=== PATIENT | female | born 1960 | race Caucasian/White ===

== ENCOUNTER 2024-10-25 00:27 | Observation (INO) | payer SELFPAY ==
[2024-10-25] VITALS (37 sets, daily range): BP systolic 80–139; BP diastolic 45–105; PULSE 70–105; RESP 10–22; TEMP 36.1–37.2; O2SAT 93–100
--- NOTE | 2024-10-25 00:46 | ED.FEMALEGU ---
HPI - Female Genitourinary General Chief complaint: Vaginal Bleeding <Darell Huynh PA-C - Last Filed: 10/25/24 01:35> Stated complaint: VAGINAL BLEEDING DURING INTERCOURSE <Darell Huynh PA-C - Last Filed: 10/25/24 01:35> Source: patient <Darell Margie Huynh PA-C - Last Filed: 10/25/24 01:35> Mode of arrival: EMS <Darell Huynh PA-C - Last Filed: 10/25/24 01:35> Limitations: no limitations <Darell Huynh PA-C - Last Filed: 10/25/24 01:35> History of Present Illness HPI Narrative: This is a 63-year-old female who presents to the ED via EMS for chief complaint of heavy vaginal bleeding that started tonight during sexual intercourse. Patient states that she is having regular vaginal intercourse with her partner. Denies use of twins are other objects. Denies assault. Endorses surgical history of total hysterectomy over 30 years ago. States that she takes sertraline for depression but no other medications. No blood thinners. Endorses lightheadedness. During the interview, patient did have a vagal episode but quickly regained consciousness. <Darell Huynh PA-C - Last Filed: 10/25/24 01:35> Related Data Home medications: Home Medications ?Medication ?Instructions ?Recorded ?Confirmed ?Last Taken ?Type omega-3 acid ethyl esters PO 03/16/24 10/13/24 Unknown History <Darell Huynh PA-C - Last Filed: 10/25/24 01:35> Allergies/Adverse reactions: Allergies Allergy/AdvReac Type Severity Reaction Status Date / Time morphine Allergy Severe Anaphylaxis Verified 10/25/24 06:28 <Darell Huynh PA-C - Last Filed: 10/25/24 01:35> Review of Systems Review of Systems: All systems as dictated in HPI <Darell Huynh PA-C - Last Filed: 10/25/24 01:35> [facility] Past Medical History Medical History: Medical History BMI 25.0-25.9,adult Dysuria Breast cancer screening Colon cancer screening BMI 26.0-26.9,adult Elevated BP without diagnosis of hypertension Anxiety Depression IBS (irritable bowel syndrome) Arthritis Allergies <Darell Huynh PA-C - Last Filed: 10/25/24 01:35> Family History Family History: Family History Sibling Alcoholism Depression Anxiety Thyroid disorder Other Anxiety Depression <Darell Huynh PA-C - Last Filed: 10/25/24 01:35> Social History Social History: Social History Smoking status: Never smoker Alcohol intake: current Drinks per week: 15 Alcohol use details: beer Substance use: never Substance use type: does not use <Darell Huynh PA-C - Last Filed: 10/25/24 01:35> Exam Narrative: GENERAL: Appears pale. Appears lightheaded. HEAD: Normocephalic, atraumatic. EYES: PERRLA and EOMI. ENT: Nares clear, no rhinorrhea or epistaxis. Mucous membranes moist. Oropharynx without tonsillar hypertrophy exudate or other lesions. NECK: Supple. No adenopathy or masses. CHEST: No respiratory distress. Clear to auscultation. No wheezes rales or rhonchi HEART: Regular rate and rhythm. No murmur heard. Normal peripheral pulses. ABDOMEN: Soft, nontender, nondistended, normal active bowel sounds. MSK: Normal range of motion. No edema. SKIN: Warm, dry, no rash. NEURO: Alert and oriented x4. No focal deficits. PSYCH: Normal mood and affect. : large amount of bright red blood and blood clot in the gurney and pooled blood in the vaginal vault on pelvic exam. Difficult to visualize exact location of bleeding source, however is thought to be close to the 2 o'clock position. <Darell Huynh PA-C - Last Filed: 10/25/24 01:35> Course Course Emergency Course: 03:00 - This patient was signed out to me by WING Huynh. She is admitted to OB with plan to go to OR. 07:00 - Overnight, the patient had intermittent episodes of hypotension to the 80s, that improved with IV fluids, including 2 units of blood. The patient is otherwise remained stable. <Mic Posada MD - Last Filed: 10/25/24 07:03> Vital Signs Vital signs: Vital Signs Pulse Rate 87 10/25/24 00:30 Respiratory Rate 12 10/25/24 00:30 Blood Pressure 120/105 H 10/25/24 00:30 Pulse Oximetry 96 10/25/24 00:30 Oxygen Delivery Room Air 10/25/24 00:30 Temperature 98.2 F 10/25/24 05:44 Pulse Rate 85 10/25/24 05:44 Respiratory Rate 17 10/25/24 05:44 Blood Pressure 108/63 10/25/24 05:44 Pulse Oximetry 98 10/25/24 05:44 Oxygen Delivery Room Air 10/25/24 00:53 <Darell Huynh PA-C - Last Filed: 10/25/24 01:35> Vital Signs Pulse Rate 87 10/25/24 00:30 Respiratory Rate 12 10/25/24 00:30 Blood Pressure 120/105 H 10/25/24 00:30 Pulse Oximetry 96 10/25/24 00:30 Oxygen Delivery Room Air 10/25/24 00:30 Temperature 98.2 F 10/25/24 05:44 Pulse Rate 85 10/25/24 05:44 Respiratory Rate 17 10/25/24 05:44 Blood Pressure 108/63 10/25/24 05:44 Pulse Oximetry 98 10/25/24 05:44 Oxygen Delivery Room Air 10/25/24 00:53 <Mic Posada MD - Last Filed: 10/25/24 07:03> MDM - Female Genitourinary MDM Narrative Medical decision making narrative: This is a 63-year-old female who presents to the ED for chief complaint of vaginal bleeding during intercourse this evening. Vitals on arrival are normal. On exam there is large amount of blood collecting in the gurney. Pelvic exam difficult to assess, however there appears to be a possible laceration in the 2 o'clock position of the vaginal cuff. She was packed with sterile OR towel. On arrival hemoglobin stable at 12.5. Will plan for serial H&Hs. She is pending type and screen as well as coags. Discussed the case with Dr. Rosas (OBGYN) who recommends keeping and patient NPO. He agrees with giving the patient 1 g of TXA IV. Plan for repeat examination and likely surgery in the morning. Patient will be admitted to [facility]. <Darell Huynh PA-C - Last Filed: 10/25/24 01:35> Lab Data Result diagrams: 10/25/24 00:42 10/25/24 00:42 <Darell Huynh PA-C - Last Filed: 10/25/24 01:35> Labs: Lab Results 10/25/24 10/25/24 Range/Units 00:41 00:42 WBC 4.7 (4.5-10.0) K/mm3 RBC 3.85 L (4.2-5.4) M/mm3 Hgb 12.5 (12.0-15.0) g/dL Hct 37.7 (37.0-47.0) % MCV 97.9 (80-100) fl MCH 32.5 (26-34) pg MCHC 33.2 (32-36) g/dl RDW 13.2 (11.5-14.5) % Plt Count 312 (150-375) k/mm3 MPV 8.8 (7.4-10.4) fl Immature Gran % (Auto) 0.4 (0-0.5) % Neut % (Auto) 44.6 L (45.5-73.1) % Lymph % (Auto) 45.2 H (18.3-44.2) % [place] % (Auto) 7.9 (2.6-8.5) % Eos % (Auto) 1.3 (0-4.4) % Baso % (Auto) 0.6 (0.2-1.2) % Lymph # (Auto) 2.13 (0.9-3.2) K/mm3 [place] # (Auto) 0.4 (0.1-0.6) K/mm3 Eos # (Auto) 0.1 (0-0.3) K/mm3 Baso # (Auto) 0.0 (0.0-0.1) K/mm3 Abs Immat Gran (auto) 0.02 (0.00-0.031) K/mm3 Absolute Neuts (auto) 2.1 (1.3-6.7) K/mm3 Absolute Nucleated RBC 0.000 (0.0-0.012) K/mm3 Nucleated RBC % 0.0 (0.0-0.2) % PT 13.1 (11.1-14.7) Seconds INR 1.0 APTT 22.6 (22.3-36.8) Seconds Sodium 138 (137-145) mmol/L Potassium 3.8 (3.4-5.0) mmol/L Chloride 101 (98-107) mmol/L Carbon Dioxide 23 (22-30) mmol/L Anion Gap 14 H (4-12) mmol/L BUN 6 L (7-17) mg/dL Creatinine 0.57 L (0.7-1.0) mg/dL Estim Creat Clear Calc 66 ml/min Estimated GFR > 60 (59 - ) Glucose 151 H (65-110) mg/dL Calcium 8.4 (8.4-10.2) mg/dL Total Bilirubin 0.1 L (0.2-1.3) mg/dL AST 39 H (14-36) U/L ALT 32 (6-35) U/L Alkaline Phosphatase 92 (38-126) U/L Total Protein 7.0 (6.3-8.2) g/dL Albumin 3.7 (3.5-5.1) g/dL Blood Type B Positive Antibody Screen Negative Crossmatch See Detail <Darell Huynh PA-C - Last Filed: 10/25/24 01:35> Lab Results 10/25/24 10/25/24 Range/Units 00:41 00:42 WBC 4.7 (4.5-10.0) K/mm3 RBC 3.85 L (4.2-5.4) M/mm3 Hgb 12.5 (12.0-15.0) g/dL Hct 37.7 (37.0-47.0) % MCV 97.9 (80-100) fl MCH 32.5 (26-34) pg MCHC 33.2 (32-36) g/dl RDW 13.2 (11.5-14.5) % Plt Count 312 (150-375) k/mm3 MPV 8.8 (7.4-10.4) fl Immature Gran % (Auto) 0.4 (0-0.5) % Neut % (Auto) 44.6 L (45.5-73.1) % Lymph % (Auto) 45.2 H (18.3-44.2) % [place] % (Auto) 7.9 (2.6-8.5) % Eos % (Auto) 1.3 (0-4.4) % Baso % (Auto) 0.6 (0.2-1.2) % Lymph # (Auto) 2.13 (0.9-3.2) K/mm3 [place] # (Auto) 0.4 (0.1-0.6) K/mm3 Eos # (Auto) 0.1 (0-0.3) K/mm3 Baso # (Auto) 0.0 (0.0-0.1) K/mm3 Abs Immat Gran (auto) 0.02 (0.00-0.031) K/mm3 Absolute Neuts (auto) 2.1 (1.3-6.7) K/mm3 Absolute Nucleated RBC 0.000 (0.0-0.012) K/mm3 Nucleated RBC % 0.0 (0.0-0.2) % PT 13.1 (11.1-14.7) Seconds INR 1.0 APTT 22.6 (22.3-36.8) Seconds Sodium 138 (137-145) mmol/L Potassium 3.8 (3.4-5.0) mmol/L Chloride 101 (98-107) mmol/L Carbon Dioxide 23 (22-30) mmol/L Anion Gap 14 H (4-12) mmol/L BUN 6 L (7-17) mg/dL Creatinine 0.57 L (0.7-1.0) mg/dL Estim Creat Clear Calc 66 ml/min Estimated GFR > 60 (59 - ) Glucose 151 H (65-110) mg/dL Calcium 8.4 (8.4-10.2) mg/dL Total Bilirubin 0.1 L (0.2-1.3) mg/dL AST 39 H (14-36) U/L ALT 32 (6-35) U/L Alkaline Phosphatase 92 (38-126) U/L Total Protein 7.0 (6.3-8.2) g/dL Albumin 3.7 (3.5-5.1) g/dL Blood Type B Positive Antibody Screen Negative Crossmatch See Detail <Mic Posada MD - Last Filed: 10/25/24 07:03> Critical Care Time Critical Care Time Critical Care Time: Yes <Mic Posada MD - Last Filed: 10/25/24 07:03> Total Critical Care Time: 35 <Mic Posada MD - Last Filed: 10/25/24 07:03> Discharge Plan Discharge Clinical Impression: Vaginal bleeding <Darell Huynh PA-C - Last Filed: 10/25/24 01:35> Patient Disposition: Still a Patient <Darell Huynh PA-C - Last Filed: 10/25/24 01:35> Condition: Stable <Darell Huynh PA-C - Last Filed: 10/25/24 01:35>
[2024-10-25 00:49] LABS: Basophils Percent Auto 0.6 % (0.2-1.2); Eosinophils Absolute Auto 0.1 K/mm3 (0-0.3); Eosinophils Percent Auto 1.3 % (0-4.4); Hematocrit 37.7 % (37.0-47.0); Hemoglobin 12.5 g/dL (12.0-15.0); Immature Granulocyte Absolute 0.02 K/mm3 (0.00-0.031); Immature Granulocyte Percent A 0.4 % (0-0.5); Lymphocytes Absolute Auto 2.13 K/mm3 (0.9-3.2); Lymphocytes Percent Auto 45.2 % (18.3-44.2); Mean Corpuscular HGB Conc 33.2 g/dl (32-36); Mean Corpuscular Hemoglobin 32.5 pg (26-34); Mean Corpuscular Volume 97.9 fl (80-100); Mean Platelet Volume 8.8 fl (7.4-10.4); Monocytes Absolute Auto 0.4 K/mm3 (0.1-0.6); Monocytes Percent Auto 7.9 % (2.6-8.5); Neutrophils Absolute Auto 2.1 K/mm3 (1.3-6.7); Neutrophils Percent Auto 44.6 % (45.5-73.1); Platelet Count Result 312 k/mm3 (150-375); Red Blood Count 3.85 M/mm3 (4.2-5.4); Red Cell Distribution Width 13.2 % (11.5-14.5); White Blood Count 4.7 K/mm3 (4.5-10.0)
[2024-10-25] MEDS: SODIUM CHLORIDE 0.9% IV 1,000 ML 999 ML IV CONT ×3 (00:51→01:50)
[2024-10-25 00:58] LABS: Alanine Aminotransferase 32 U/L (6-35); Albumin Level 3.7 g/dL (3.5-5.1); Alkaline Phosphatase 92 U/L (38-126); Anion Gap 14 mmol/L (4-12); Aspartate Amino Transferase 39 U/L (14-36); Bilirubin,Total 0.1 mg/dL (0.2-1.3); Blood Urea Nitrogen 6 mg/dL (7-17); Calcium 8.4 mg/dL (8.4-10.2); Carbon Dioxide 23 mmol/L (22-30); Chloride 101 mmol/L (98-107); Estimated CRCL calculation 66 ml/min; Estimated Glomerular Filt Rate > 60; Glucose 151 mg/dL (65-110); Potassium 3.8 mmol/L (3.4-5.0); Sodium 138 mmol/L (137-145)
--- OUTSIDE RECORDS SUMMARY | 2024-10-25 01:00 | XMS_ITS | Clinical Summary ---
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 Gender Identity Not on file Sexual Orientation Not on file Plan of Treatment Health Maintenance Due Date Last Done Comments Cervical Cancer Screening Pa p Smear (Age 30 to 64) Every 3 Years 1962 Colorectal Cancer Screening Colonoscopy (10 Years) 1962 Annual Physical 1965 Hepatitis C 1980 DTaP, Tdap and Td Vaccines ( 1 - Tdap) 1981 Cervical Cancer Screening Pa p with HPV Testing (Age 30 to 64) Every 5 Years 1992 Cervical Cancer Screening with HPV 1992 Mammogram Screening 2002 Zoster Vaccines (1 of 2) 2012 COVID-19 Vaccine (2023-2 5 season) 2024 Influenza Adult (#1) 2024 RSV Immunization or 60+ Years (1 - 1-dose 75+ series) 2037 Meningococcal B Vaccine Aged Out No l onger eligible based on patient's age to complete this topic Meningococcal Vaccine Aged Out No kacey raquel eligible based on patient's age to complete this topic Pneumococcal Vaccine: Pediat rics (0 to 5 Years) and At-Risk Patients (6 to 64 Years) Aged Out No longer eligible b ased on patient's age to complete this topic RSV Immunizations Under 20 Months Aged Out No longer eligible based on patient's age to complete this topic
--- OUTSIDE RECORDS SUMMARY | 2024-10-25 01:00 | XMS_ITS | Clinical Summary ---
Author Organization 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 Gender Identity Not on file Sexual Orientation Not on file Plan of Treatment Health Maintenance Due Date Last Done Comments Hepatitis C Virus (HCV) Screening 1962 TdaP Immunization 1962 Pap Smear 11/13/1983 Cervical Cancer Screening (CCS) 1992 HPV/Cotest 1992 Colonoscopy 11/13/2007 Colorectal Cancer Screening 11/13/2007 Cologuard 2012 Immunochemical Fecal Occult Blood 2012 Mammogram 2012 Pneumococcal Immunization (5 0+ years) (1 of 1 - PCV) 2012 Zoster Immunization (1 of 2) 2012 Influenza Immunization (#1) 2024 SARS-COV-2 Immunization ( season) 2024 Respiratory Syncytial Virus (RSV) Immunization (Adult) (1 - 1-dose 75+ series) 2037 Hepatitis B Immunization Aged Out No longer eligible based on patient's age to complete this topic Meningococcal Immunization (ACWY) Aged Out No longer eligible based on patient's age to complete this topic Pneumococcal Immunization Combined Aged Out No longer eligible based on patient's age to complete this topic Rotavirus Immunization Aged Out No lo nger eligible based on patient's age to complete this topic
[2024-10-25 01:02] LABS: Prothrombin Time 13.1 Seconds (11.1-14.7)
[2024-10-25 01:03] LABS: Partial Thromboplastin Time 22.6 Seconds (22.3-36.8)
[2024-10-25] MEDS: TRANEXAMIC ACID 1,000MG/ISO100 1,000 MG/100 ML BAG 200 MG IVPB (01:18)
[2024-10-25] MEDS: SODIUM CHLORIDE 0.9% IV 1,000 ML 75 ML IV CONT (03:16)
[2024-10-25 05:06] LABS: Add Urine Microscopic? YES; Appearance Urine Clear (Clear); Bacteria Urine None Seen /hpf; Bilirubin Urine Negative (Negative); Blood Urine 2+ (Negative); Color Urine Yellow (Yellow); Glucose Urine UA Negative (Negative); Ketones Urine Negative (Negative); Leukocyte Esterase Ur Negative LEU/UL (Negative); Nitrate Urine Negative (Negative); Non Pathogenic Casts 0-2; Protein Urine Negative (Negative); RBC Urine 21-50 /hpf (0-2); Specific Grav Ur 1.007 (1.001-1.035); Squamous Epithelial Cell Urine None Seen /hpf (Few); Urobilinogen Urine 0.2 mg/dL (<2.0); WBC Urine 0-5 /hpf (0-3); pH Urine 5.5 (5.0-9.0)
[2024-10-25] MEDS: SODIUM CHLORIDE 0.9% IV 250 ML 30 ML IV CONT (06:01)
[2024-10-25] MEDS: TUBING, BLOOD SET 1 EACH XX ×2 (06:01)
[2024-10-25] MEDS: SODIUM CHLORIDE 0.9% IV 250 ML (06:01)
[2024-10-25 07:28] LABS: Hematocrit 35.7 % (37.0-47.0); Hemoglobin 11.9 g/dL (12.0-15.0)
--- NOTE | 2024-10-25 07:33 | PC.NURSE ---
adis canchola removed at 0715. pt temp was 98.9
--- NOTE | 2024-10-25 08:33 | WPDANESEPPF ---
Anes - Initial Pre Proc Eval Procedure: Operation Date: 10/25/24 10:30 Proposed Procedures p Anterior and Posterior Repair - Hung Rosas MD Date/Time: 10/25/24 08:33 Surgeon: Hung Rosas MD Pre Op Diagnosis: vaginal bleed Patient Data Age: 63 Gender: F Height: 1.55 m Weight: 61.6 kg Last Vital Signs Temp 37.2 C 10/25/24 08:09 Pulse 92 10/25/24 08:09 Resp 18 10/25/24 08:09 BP 124/69 10/25/24 08:09 Pulse Ox 96 10/25/24 08:09 O2 Del Method Room Air 10/25/24 00:53 Allergies Allergy/AdvReac Type Severity Reaction Status Date / Time morphine Allergy Severe Anaphylaxis Verified 10/25/24 06:28 Home Medications ?Medication ?Instructions ?Recorded ?Confirmed ?Type omega-3 acid ethyl esters PO 03/16/24 10/13/24 History sertraline 50 mg tablet 50 mg PO DAILY #90 tabs 10/13/24 10/13/24 Rx Laboratory Tests 10/25/24 10/25/24 10/25/24 00:41 00:42 04:54 WBC 4.7 K/mm3 (4.5-10.0) RBC 3.85 L M/mm3 (4.2-5.4) Hgb 12.5 g/dL (12.0-15.0) Hct 37.7 % (37.0-47.0) MCV 97.9 fl (80-100) MCH 32.5 pg (26-34) MCHC 33.2 g/dl (32-36) RDW 13.2 % (11.5-14.5) Plt Count 312 k/mm3 (150-375) MPV 8.8 fl (7.4-10.4) Immature Gran % (Auto) 0.4 % (0-0.5) Neut % (Auto) 44.6 L % (45.5-73.1) Lymph % (Auto) 45.2 H % (18.3-44.2) [place] % (Auto) 7.9 % (2.6-8.5) Eos % (Auto) 1.3 % (0-4.4) Baso % (Auto) 0.6 % (0.2-1.2) Lymph # (Auto) 2.13 K/mm3 (0.9-3.2) [place] # (Auto) 0.4 K/mm3 (0.1-0.6) Eos # (Auto) 0.1 K/mm3 (0-0.3) Baso # (Auto) 0.0 K/mm3 (0.0-0.1) Abs Immat Gran (auto) 0.02 K/mm3 (0.00-0.031) Absolute Neuts (auto) 2.1 K/mm3 (1.3-6.7) Absolute Nucleated RBC 0.000 K/mm3 (0.0-0.012) Nucleated RBC % 0.0 % (0.0-0.2) PT 13.1 Seconds (11.1-14.7) INR 1.0 APTT 22.6 Seconds (22.3-36.8) Sodium 138 mmol/L (137-145) Potassium 3.8 mmol/L (3.4-5.0) Chloride 101 mmol/L (98-107) Carbon Dioxide 23 mmol/L (22-30) Anion Gap 14 H mmol/L (4-12) BUN 6 L mg/dL (7-17) Creatinine 0.57 L mg/dL (0.7-1.0) Estim Creat Clear Calc 66 ml/min Estimated GFR > 60 (59 - ) Glucose 151 H mg/dL (65-110) Calcium 8.4 mg/dL (8.4-10.2) Total Bilirubin 0.1 L mg/dL (0.2-1.3) AST 39 H U/L (14-36) ALT 32 U/L (6-35) Alkaline Phosphatase 92 U/L (38-126) Total Protein 7.0 g/dL (6.3-8.2) Albumin 3.7 g/dL (3.5-5.1) Urine Color Yellow (Yellow) Urine Appearance Clear (Clear) Urine pH 5.5 (5.0-9.0) Ur Specific [place] 1.007 (1.001-1.035) Urine Protein Negative mg/dL (Negative) Urine Glucose (UA) Negative mg/dL (Negative) Urine Ketones Negative mg/dL (Negative) Ur Blood (Man) 2+ H (Negative) Urine Nitrate Negative (Negative) Urine Bilirubin Negative (Negative) Urine Urobilinogen 0.2 mg/dL (<2.0) Leukocyte Esterase Rfl Negative JUANIS/UL (Negative) Urine RBC 21-50 H /hpf (0-2) Urine WBC 0-5 /hpf (0-3) Ur Squamous Epith Cells None seen /hpf (Few) Urine Bacteria None seen /hpf Urine Casts 0-2 Blood Type B Positive Antibody Screen Negative Crossmatch See Detail 10/25/24 07:15 WBC RBC Hgb 11.9 L g/dL (12.0-15.0) Hct 35.7 L % (37.0-47.0) MCV MCH MCHC RDW Plt Count MPV Immature Gran % (Auto) Neut % (Auto) Lymph % (Auto) [place] % (Auto) Eos % (Auto) Baso % (Auto) Lymph # (Auto) [place] # (Auto) Eos # (Auto) Baso # (Auto) Abs Immat Gran (auto) Absolute Neuts (auto) Absolute Nucleated RBC Nucleated RBC % PT INR APTT Sodium Potassium Chloride Carbon Dioxide Anion Gap BUN Creatinine Estim Creat Clear Calc Estimated GFR Glucose Calcium Total Bilirubin AST ALT Alkaline Phosphatase Total Protein Albumin Urine Color Urine Appearance Urine pH Ur Specific [place] Urine Protein Urine Glucose (UA) Urine Ketones Ur Blood (Man) Urine Nitrate Urine Bilirubin Urine Urobilinogen Leukocyte Esterase Rfl Urine RBC Urine WBC Ur Squamous Epith Cells Urine Bacteria Urine Casts Blood Type Antibody Screen Crossmatch Patient hx anesthesia problems: none Family hx anesthesia problems: none Results Review: All pre-operative results and documents have been reviewed as part of the pre-operative evaluation. [facility] Past Medical History Medical History BMI 25.0-25.9,adult Dysuria Breast cancer screening Colon cancer screening BMI 26.0-26.9,adult Elevated BP without diagnosis of hypertension Anxiety Depression IBS (irritable bowel syndrome) Arthritis Allergies Family History Family History Sibling Alcoholism Depression Anxiety Thyroid disorder Other Anxiety Depression Social History Social History (Updated 10/25/24 @ 08:45 by Isaac Barnett DO) Smoking status: Never smoker Alcohol intake: current Drinks per week: 15 Alcohol use details: 2-3 beer/day Substance use: never Substance use type: does not use Anes - Eval Final PreProcedure Day of Procedure 10/25/24 08:33 Patient weight: overweight Heart: regular rate and rhythm Lungs: clear to auscultation Airway: Mallampati scale class II Neurological: alert and oriented Last oral intake: >/= 8 hours ASA classification: III Emergent: yes Anesthetic plan: proceed Anesthesia type and monitoring: general LMA and standard monitoring Results Review: All pre-operative results and documents have been reviewed as part of the pre-operative evaluation. Informed Consent: The patient's anesthetic plan and its attendant risks and benefits were discussed with the patient/family/POA. Questions were solicited and answers provided to the satisfaction of the patient/family/POA.
--- NOTE | 2024-10-25 08:50 | P.HP_ITS ---
H&P: HPI History of Present Illness Date/Time: 10/25/24 08:50 63-year-old female admitted through the emergency room last night with vaginal bleeding after intercourse. Same partner she has had for years, no toys or instruments, no other pain or discomfort. Denies nausea vomiting constipation diarrhea or urinary tract symptoms. Hysterectomy over 20 years ago, no issues with that either. Chief Complaint: Vaginal bleeding Review of Systems Review of Systems: All systems reviewed & are unremarkable except as noted in HPI and below PMFSH Past Medical History Medical History BMI 25.0-25.9,adult Dysuria Breast cancer screening Colon cancer screening BMI 26.0-26.9,adult Elevated BP without diagnosis of hypertension Anxiety Depression IBS (irritable bowel syndrome) Arthritis Allergies Family History Family History Sibling Alcoholism Depression Anxiety Thyroid disorder Other Anxiety Depression Social History Social History Smoking status: Never smoker Alcohol intake: current Drinks per week: 15 Alcohol use details: 2-3 beer/day Substance use: never Substance use type: does not use Meds Home Medications and Allergies Home Medications ?Medication ?Instructions ?Recorded ?Confirmed ?Type omega-3 acid ethyl esters PO 03/16/24 10/13/24 History sertraline 50 mg tablet 50 mg PO DAILY #90 tabs 10/13/24 10/13/24 Rx Allergies Allergy/AdvReac Type Severity Reaction Status Date / Time morphine Allergy Severe Anaphylaxis Verified 10/25/24 06:28 Vital Signs Vital Signs - 24 hr 10/25/24 00:30 10/25/24 00:44 10/25/24 00:53 Temperature 97.4 F L Pulse Rate 87 84 77 Respiratory Rate 12 16 12 Blood Pressure 120/105 H 139/68 121/53 L Pulse Oximetry 96 95 100 Oxygen Delivery Room Air Room Air 10/25/24 01:09 10/25/24 01:17 10/25/24 01:28 Temperature Pulse Rate 74 82 73 Respiratory Rate 11 L 11 L 13 Blood Pressure 109/59 L 92/50 L 99/54 L Pulse Oximetry 99 100 100 Oxygen Delivery 10/25/24 01:47 10/25/24 01:51 10/25/24 01:59 Temperature Pulse Rate 78 70 85 Respiratory Rate 20 16 13 Blood Pressure 80/45 L 80/45 L 123/66 Pulse Oximetry 93 99 Oxygen Delivery 10/25/24 03:02 10/25/24 03:04 10/25/24 03:18 Temperature Pulse Rate 91 88 93 Respiratory Rate 14 14 13 Blood Pressure 81/59 L 121/69 128/71 Pulse Oximetry 95 100 Oxygen Delivery 10/25/24 03:24 10/25/24 03:25 10/25/24 04:07 Temperature 97.5 F L 97.5 F L 97.7 F Pulse Rate 90 95 Respiratory Rate 16 18 Blood Pressure 128/71 91/60 L Pulse Oximetry 98 97 Oxygen Delivery 10/25/24 04:26 10/25/24 04:42 10/25/24 04:48 Temperature 97.8 F 97.7 F Pulse Rate 81 83 85 Respiratory Rate 20 16 17 Blood Pressure 109/65 103/58 L 85/55 L Pulse Oximetry 99 96 96 Oxygen Delivery 10/25/24 05:14 10/25/24 05:14 10/25/24 05:18 Temperature 98.2 F 98.2 F Pulse Rate 82 83 Respiratory Rate 21 H 17 Blood Pressure 98/66 L 92/78 L Pulse Oximetry 98 99 Oxygen Delivery 10/25/24 05:27 10/25/24 05:29 10/25/24 05:33 Temperature 97.9 F 97.9 F 98.0 F Pulse Rate 85 81 84 Respiratory Rate 20 18 22 H Blood Pressure 92/78 L 92/78 L 108/63 Pulse Oximetry 95 96 96 Oxygen Delivery 10/25/24 05:44 10/25/24 06:20 10/25/24 06:28 Temperature 98.2 F 98.4 F Pulse Rate 85 89 89 Respiratory Rate 17 16 22 H Blood Pressure 108/63 118/62 118/67 Pulse Oximetry 98 96 95 Oxygen Delivery 10/25/24 06:31 10/25/24 07:04 10/25/24 07:27 Temperature 98.7 F 99.0 F Pulse Rate 94 105 H 101 H Respiratory Rate 17 15 22 H Blood Pressure 104/48 L 114/52 L 104/69 Pulse Oximetry 96 95 96 Oxygen Delivery 10/25/24 08:09 Temperature 98.9 F Pulse Rate 92 Respiratory Rate 18 Blood Pressure 124/69 Pulse Oximetry 96 Oxygen Delivery Exam Const: General: cooperative and healthy appearing Resp: Effort & Inspection: normal respiratory effort Auscultation: clear to auscultation bilaterally Cardio: Rate: regular rate Rhythm: regular rhythm GI: Inspection: normal to inspection Auscultation: normal bowel sounds : Other: Exam deferred until surgical exploration H&P: Results Labs Labs: Short CBC 10/25/24 10/25/24 Range/Units 00:42 07:15 WBC 4.7 (4.5-10.0) K/mm3 Hgb 12.5 11.9 L (12.0-15.0) g/dL Hct 37.7 35.7 L (37.0-47.0) % Plt Count 312 (150-375) k/mm3 BMP 10/25/24 00:42 Sodium 138 Potassium 3.8 Chloride 101 Carbon Dioxide 23 BUN 6 L Creatinine 0.57 L Glucose 151 H Calcium 8.4 Liver Function 10/25/24 Range/Units 00:42 Total Bilirubin 0.1 L (0.2-1.3) mg/dL AST 39 H (14-36) U/L ALT 32 (6-35) U/L Alkaline Phosphatase 92 (38-126) U/L Albumin 3.7 (3.5-5.1) g/dL Urine 10/25/24 Range/Units 04:54 Urine Color Yellow (Yellow) Urine Appearance Clear (Clear) Urine pH 5.5 (5.0-9.0) Ur Specific [place] 1.007 (1.001-1.035) Urine Protein Negative (Negative) mg/dL Urine Glucose (UA) Negative (Negative) mg/dL Assessment and Plan Assessment and plan (1) Vaginal bleeding: Code(s): N93.9 - Abnormal uterine and vaginal bleeding, unspecified Status: Acute Assessment and Plan: Discussed possible etiologies from vaginal wall laceration to vaginal cuff dehiscence. Will evaluate in the OR and repair as needed.
--- NOTE | 2024-10-25 08:53 | WPDHPUPDATE1 ---
History and Physical Update Update Date/Time: 10/25/24 08:53 History and Physical has been reviewed, including an updated exam of the patient. There are NO changes in the patient's condition. Risks, benefits, and alternatives have been discussed and questions answered. Patient agrees to proceed with procedure.
[2024-10-25 09:25] LABS: Hematocrit 32.1 % (37.0-47.0); Hemoglobin 10.9 g/dL (12.0-15.0)
--- NOTE | 2024-10-25 09:39 | W.PM.PROC2 ---
Procedure Note - Detailed Date of Procedure 10/25/24 Pre-op Diagnosis vaginal bleed Post-op Diagnosis Other (Vaginal laceration) Procedure Performed 1. Examination under anesthesia 2. Laceration repair Surgeon Hung Rosas MD Anesthesia MAC Findings Right apex of the vagina with 3cm laceration which was oozing. Probe did not reveal full-thickness penetration of the laceration to the abdominal cavity. Description of Procedure Patient was prepped and draped in usual manner for this procedure. [place] speculum was placed and immediate visualization of the right apex laceration was noted. Hegar dilators were placed in the laceration through the tire length of the laceration to evaluate if connection to the abdominal cavity had occurred. There was no penetration. Using a 0 chromic suture in a running interlocking manner the laceration was readily paired and rendered hemostatic. This was monitored for [id number] with no further bleeding. At this point the procedure was considered terminated and the patient was sent to recovery room in stable condition. Estimated Blood Loss 10 Drains No Packing No Pathology None sent Complications No immediate complications Condition Stable Disposition PACU [facility] Billing Surgery - Charge Forward: Surgery Billing
[2024-10-25] MEDS: LACTATED RINGERS 1,000 ML 30 ML IV CONT (10:21)
[2024-10-25] MEDS: oxyCODONE HCL (*CRX) 5 MG TAB IR PO (10:40)
--- NOTE | 2024-10-28 13:52 | P.DS_ITS ---
DS: Admitting Diagnosis Discharge Date 10/25/24 Admitting Diagnosis vaginal bleeding DS: Discharge Diagnosis Discharge Diagnosis (1) Vaginal bleeding: Code(s): N93.9 - Abnormal uterine and vaginal bleeding, unspecified Status: Acute (2) Vaginal laceration: Code(s): S31.41XA - Laceration without foreign body of vagina and vulva, initial encounter Status: Acute OB - DS: Summary OB Procedures : None OB Procedures Intrapartum: Other OB Procedures: : None Peripartum Data Procedures: Procedures Operation Date: 10/25/24 10:30 Actual Procedure Side Surgeon p Vaginal Exam Under Anesthesia, Vaginal Wall Laceration with Repair Not Applicable Hung Rosas MD Time Spent with Patient Time attestation: Total time spent providing and/or coordinating discharge services: Discharge Plan Discharge Attending physician on discharge: Hung Rosas Consulting providers: Mic Posada; Isaac Barnett Discharging Clinician: Hung Rosas Activity: may shower, follow weight bearing status and pelvic rest Diet: as tolerated Discharge Instructions: Vaginal Surgery Discharge Instructions (Cyst removal, Anterior/Posterior Repair, TVT/TOT, etc) - Okay to shower in 24 hours, avoid baths/pools until you see your Doctor at your post-op visit - Nothing in the vagina for 4-6 weeks (no tampons or intercourse) - Limit lifting to less than 10-15 pounds and strenuous exercise for 4-6 weeks (ONE gallon of milk weighs 8 pounds) Encouraged Activities/OTC Medications that are safe (Unless your doctor specifically told you not to take/do them, and you're not allergic) - Colace 1 capsule twice daily or Miralax daily to prevent constipation - Tylenol 1000mg every 6-8 hours as needed for pain - Ibuprofen 600mg every 6-8 hours as needed for pain - You can use heating pads or ice packs as needed if it helps with discomfort - Getting up/walking short distances multiple times daily-- we do not recommend bed rest - Stay hydrated; try to drink 64oz/ 2L daily of water, smaller meals are okay (decreased appetite is common after anesthesia) CALL YOUR DOCTOR/GO TO THE EMERGENCY ROOM IF YOU: - Are having heavy vaginal bleeding (saturating 2 Kotex pads an hour) - Cannot keep food/liquids down - Have not urinated in 6 hours or are unable to - Have not had a bowel movement in 5 days - Have a concerning rash that might be an allergic reaction - Have a fever greater than 100.4 degrees Fahrenheit - Significant pain not relieved with your prescribed medications +/- OTC meds - Significant redness, drainage, or bleeding from your incision Follow up with Dr. Rosas in 3-4 weeks time. Please call for appointment. Activity: .Advance activity as tolerated but plan to relax the remainder of the day. .For the Next 24 hours: Do not drive, do not drink alcoholic beverages, do not take any medications not prescribed to you by a physician and do not make any important decisions. .Have someone help you from the car to house in case you get dizzy. .A responsible adult should stay with the patient for 24 hours (to summon help should complications occur). Follow-up Care: .If you had an IV today- after it is discontinued keep dressing intact for at least one hour then you may remove it (it will get too tight if you leave it on all day). Keep your IV site clean. Any signs of redness, pain swelling or heat please notify your surgeon. .Please call the doctor's (surgeon) office to schedule a follow-up appointment. .If ANY questions or concerns do not hesitate to call your doctor. If not able to reach your doctor and feel your concern is an emergency call 911 or go to the local emergency room. Patient Language: Italian Follow-up/Referrals: Hung Rosas MD [Physician] - 4 Weeks Discharge Medications: New ibuprofen 800 mg tablet 800 mg PO TID PRN (Reason: pain) Qty: 20 0RF Continued omega-3 acid ethyl esters PO sertraline 50 mg tablet 50 mg PO DAILY Qty: 90 3RF Date of admission: 10/25/24 01:15 Primary Care Provider: Nabila Hernández Admitting Provider: Hung Rosas Attending physician on admission: Hung Rosas Condition: Stable
== END 2024-10-25 11:20 ==
LOC: ANHED 01:01 → ANH3MEDSUR 01:55
PROVIDERS: Preventive Medicine Aerospace Medicine; Admitting Provider Obstetrics & Gynecology; Emergency Provider Physician Assistant; PCP Nurse Practitioner Family; Visit Provider Obstetrics & Gynecology
PROC: (CPT 57260; principal; 2024-10-25 10:30)
DX: S31.41XA Laceration without foreign body of vagina and vulva, initial encounter (principal); N93.9 Abnormal uterine and vaginal bleeding, unspecified; F41.8 Other specified anxiety disorders
CPT/HCPCS: 57200; 36415; 36430; 80053; 81001; 85014; 85018; 85025; 85610; 85730; 86850; 86900; 86901; 86923; 99285; A9270; J1100; J2003; J2250; J2371; J2405; J2704; J3010; J7030; J7050; J7120; P9016